=== PATIENT | female | born 1990 | race Caucasian/White ===

== ENCOUNTER 2017-03-28 16:37 | Emergency (ER) | payer MEDICAID, OTHER ==
[~2017-03-28] VITALS: Ht 177.8 cm; Wt 86.0 kg
[2017-03-28 16:38] VITALS: Ht 177.8 cm; Wt 86.0 kg
[2017-03-28 18:08] LABS: BASOPHILS % 0.3 % (0.0-2.0); EOSINOPHILS # 0.4 10^3/ul (0.0-0.5); EOSINOPHILS % 3.6 % (0.0-7.0); HEMATOCRIT 42.9 % (37.0-47.0); HEMOGLOBIN 14.1 g/dl (12.0-16.0); LYMPHOCYTES # 2.6 10^3/ul (0.8-2.9); LYMPHOCYTES % 26.3 % (15.0-51.0); MEAN CORPUSCULAR HEMOGLOBIN 29.6 pg (29.0-33.0); MEAN CORPUSCULAR HGB CONC 32.9 g/dl (32.0-37.0); MEAN CORPUSCULAR VOLUME 90.1 fl (82.0-101.0); MEAN PLATELET VOLUME 9.6 fl (7.4-10.4); MONOCYTE # 0.8 10^3/ul (0.3-0.9); MONOCYTES % 7.7 % (0.0-11.0); NEUTROPHIL # 6.2 10^3/ul (1.6-7.5); NEUTROPHILS % 61.8 % (39.0-77.0); PLATELET COUNT 358 10^3/UL (140-415); RED BLOOD COUNT 4.76 10^6/ul (4.20-5.40); RED CELL DISTRIBUTION WIDTH 14.6 % (11.5-14.5)
[2017-03-28 18:23] LABS: ADD UMIC YES; UR ASCORBIC ACID 40 mg/dL (NEGATIVE); UR BACTERIA FEW /HPF (NONE SEEN); UR BILIRUBIN (Dip) NEGATIVE (NEGATIVE); UR BLOOD (Dip) 3+ mg/dL (NEGATIVE); UR CLARITY SLIGHTLY CLOUDY (CLEAR); UR COLOR AMBER (YELLOW); UR GLUCOSE (Dip) NEGATIVE (NEGATIVE); UR KETONES (Dip) NEGATIVE (NEGATIVE); UR LEUKOCYTE ESTERASE (Dip) NEGATIVE Leu/ul (NEGATIVE); UR MUCUS MODERATE /HPF (NONE SEEN); UR NITRITE (Dip) NEGATIVE (NEGATIVE); UR RBC 50 /HPF (0-5); UR SPECIFIC GRAVITY (Dip) 1.028 (1.003-1.030); UR SQUAMOUS EPITHELIAL CELL FEW /HPF (FEW); UR TOTAL PROTEIN (Dip) 1+ mg/dl (NEGATIVE); UR UROBILINOGEN (Dip) NEGATIVE (NEGATIVE)
--- NOTE | 2017-03-28 18:44 | RADRPT ---
PROCEDURE: US Pelvis. CLINICAL INDICATION: Pelvic pain TECHNIQUE: Multiple sonographic images of the pelvis were obtained utilizing a transabdominal and endovaginal technique. The images were reviewed on a PACS workstation. COMPARISON: None. FINDINGS: The uterus is visualized and measures 8.4 x 6.4 x 6.9 cm in size. A sonolucent structure in the endo metrium is seen with a mean gestational sac diameter of 10.3 mm which gives an estimated gestational age of 5 weeks and 4 days. No pole or yolk sac is identified. There is a trace amount of rosaline e fluid. The right ovary has a normal echotexture and measures 3.1 x 2.1 x 2.3 cm. The left ovary h as a normal echotexture and measures 2.9 x 1.7 x 2.3 cm. No adnexal masses are noted. IMPRESSION: 1. Sonolucent structure in the endometrium without evidence of a pole or yolk sac and may rep resent an early . Correlation with serial beta HCG levels is suggested as well as a short interval follow-up. 2. Trace amount of free fluid. RPTAT: HPNM Physician Alireza Date Time Electronically viewed and signed by Physician Alireza on 03/28/2017 18:43 /
--- NOTE | 2017-03-28 19:43 | ERD ---
ER Documentation Chief Complaint Date/Time DATE: 03/28/17 TIME: 19:41 Chief Complaint vaginal bleeding and pelvic pain x 1 day 7 weeks HPI 26-year-old female patient with no significant past medical history is a presents to the ED complaining of vaginal bleeding that started earlier today. Reports that she has change 1 pad per day. States that his last menses was January 16, 2017. Reports that her SKIDDER is Dr. Arias. Denies any vaginal discharge , dysuria, urgency, frequency, hematuria, nausea, vomiting, diarrhea. ROS All systems reviewed and are negative except as per history of present illness. Medications Home Meds Reported Medications [None] No Conflict Check 02/01/10 Allergies Allergies: Coded Allergies: No Known Allergy (Verified , 03/28/17) Uncoded Allergies: NONE (Allergy, Mild, 02/01/10) PMhx/Soc History of Surgery: No Anesthesia Reaction: No Hx Neurological Disorder: No Hx Respiratory Disorders: No Hx Psychiatric Problems: No Hx Miscellaneous Medical Probl: No Hx Alcohol Use: No Hx Substance Use: No Hx Tobacco Use: No Physical Exam Vitals Vital Signs Date Time Temp Pulse Resp B/P Pulse Ox O2 Delivery O2 Flow Rate FiO2 03/28/17 16:38 98.2 78 16 108/60 100 Physical Exam Const: [id number], well-nourished. In no acute distress. Head: Atraumatic, normocephalic Eyes: Normal Conjunctiva without injection. No purulent discharge. ENT: Normal external ear, nose. Moist oropharynx without tonsillar exudates. Non -erythematous pharynx. Uvula midline. No drooling. No trismus. Neck: No cervical midline tenderness. Full range of motion. No meningismus. No cervical lymphadenopathy. No JVD. Resp: Clear to auscultation bilaterally. No wheezing, rhonchi, rales, or crackles. No accessory muscle use. No retractions. Cardio: Regular rate and rhythm. No murmurs, rubs or gallops. Abd: Soft, nontender, non distended. Normal bowel sounds. No palpable masses. No rebound tenderness. No guarding. Negative McBurney's point. Negative psoas sign. Negative obturator sign. Skin: No petechiae or rashes Back: No midline tenderness. No CVA tenderness. Ext: No cyanosis, or edema. Neur: Awake and alert. Normal gait. Normal coordination. Psych: Normal Mood and Affect Result Diagram: 03/28/17 1751 Results 24 hrs Laboratory Tests Test 03/28/17 17:51 White Blood Count 10.010^3/ul Red Blood Count 4.7610^6/ul Hemoglobin 14.1g/dl Hematocrit 42.9% Mean Corpuscular Volume 90.1fl Mean Corpuscular Hemoglobin 29.6pg Mean Corpuscular Hemoglobin Concent 32.9g/dl Red Cell Distribution Width 14.6% Platelet Count 21842^3/UL Mean Platelet Volume 9.6fl Neutrophils % 61.8% Lymphocytes % 26.3% Monocytes % 7.7% Eosinophils % 3.6% Basophils % 0.3% Nucleated Red Blood Cells % 0.0/100WBC Neutrophils # 6.210^3/ul Lymphocytes # 2.610^3/ul Monocytes # 0.810^3/ul Eosinophils # 0.410^3/ul Basophils # 0.010^3/ul Nucleated Red Blood Cells # 0.010^3/ul Urine Color RHIANNON Urine Clarity SLIGHTLY CLOUDY Urine pH 5.0 Urine Specific [place] 1.028 Urine Ketones NEGATIVEmg/dL Urine Nitrite NEGATIVEmg/dL Urine Bilirubin NEGATIVEmg/dL Urine Urobilinogen NEGATIVEmg/dL Urine Leukocyte Esterase NEGATIVELeu/ul Urine Microscopic RBC 50/HPF Urine Microscopic WBC 2/HPF Urine Squamous Epithelial Cells FEW/HPF Urine Bacteria FEW/HPF Urine Mucus MODERATE/HPF Urine Hemoglobin 3+mg/dL Urine Glucose NEGATIVEmg/dL Urine Total Protein 1+mg/dl Beta HCG, Quantitative 89133.0mIU/ml Procedures/MDM 26-year-old female patient with no significant past medical history presents the ED complaining of vaginal bleeding and is currently . Patient is a . Patient is afebrile and nontoxic-appearing. Patient has normal vital signs. An ultrasound, beta-hCG, CBC, type and RH, UA was ordered to evaluate patient. CBC: No evidence of severe infection or anemia Urine: No elevation in nitrites, leukocyte esterase, hematuria. No evidence of UTI Rh: O positive No indication for Rhogam at this time. beta Hc,117 PROCEDURE: US Pelvis. CLINICAL INDICATION: Pelvic pain TECHNIQUE: Multiple sonographic images of the pelvis were obtained utilizing a transabdominal and endovaginal technique. The images were reviewed on a PACS workstation. COMPARISON: None. FINDINGS: The uterus is visualized and measures 8.4 x 6.4 x 6.9 cm in size. A sonolucent structure in the endometrium is seen with a mean gestational sac diameter of 10.3 mm which gives an estimated gestational age of 5 weeks and 4 days. No pole or yolk sac is identified. There is a trace amount of free fluid. The right ovary has a normal echotexture and measures 3.1 x 2.1 x 2.3 cm. The left ovary has a normal echotexture and measures 2.9 x 1.7 x 2.3 cm. No adnexal masses are noted. IMPRESSION: 1. Sonolucent structure in the endometrium without evidence of a pole or yolk sac and may represent an early . Correlation with serial beta HCG levels is suggested as well as a short interval follow-up. 2. Trace amount of free fluid. Patient has a sonolucent structure - gestational sac of 10 mm which gives an estimated gestational age of 5 weeks and 4 day. Patient's bleeding symptoms have stabilized while in the department. Low suspicion for symptomatic anemia, ectopic , sepsis, PID, appendicitis, ovarian torsion, tubo-ovarian abscess, surgical abdomen, or other emergent conditions. Patient was educated that there is a risk for threatened . Patient to follow up with SKIDDER in 2 days for further evaluation and treatment for further evaluation and treatment for further evaluation and treatment. Patient is to return sooner to the ED for any worsening symptoms. Patient's questions were answered. Patient understood and agreed with discharge plan. Departure Diagnosis: Primary Impression: Vaginal bleeding in patient at less than 20 weeks ges... Condition: Stable Patient Instructions: Bleeding During Early Referrals: GIGI QUEEN MD (PCP) [facility] YOU HAVE RECEIVED A MEDICAL SCREENING EXAM AND THE RESULTS INDICATE THAT YOU DO NOT HAVE A CONDITION THAT REQUIRES URGENT TREATMENT IN THE EMERGENCY DEPARTMENT. FURTHER EVALUATION AND TREATMENT OF YOUR CONDITION CAN WAIT UNTIL YOU ARE SEEN IN YOUR DOCTORS OFFICE WITHIN THE NEXT 1-2 DAYS. IT IS YOUR RESPONSIBILITY TO MAKE AN APPOINTMENT FOR FOLOW-UP CARE. IF YOU HAVE A PRIMARY DOCTOR --you should call your primary doctor and schedule an appointment IF YOU DO NOT HAVE A PRIMARY DOCTOR YOU CAN CALL OUR PHYSICIAN REFERRAL HOTLINE AT IF YOU CAN NOT AFFORD TO SEE A PHYSICIAN YOU CAN CHOSE FROM THE FOLLOWING [facility] CLINICS [facility] [address] [facility] [address] [facility]. [facility] [phone] [facility] [address] [facility] [phone] [facility] [facility] [address] [facility]. [facility] YOU HAVE RECEIVED A MEDICAL SCREENING EXAM AND THE RESULTS INDICATE THAT YOU DO NOT HAVE A CONDITION THAT REQUIRES URGENT TREATMENT IN THE EMERGENCY DEPARTMENT. FURTHER EVALUATION AND TREATMENT OF YOUR CONDITION CAN WAIT UNTIL YOU ARE SEEN IN YOUR DOCTORS OFFICE WITHIN THE NEXT 1-2 DAYS. IT IS YOUR RESPONSIBILITY TO MAKE AN APPOINTMENT FOR FOLOW-UP CARE. IF YOU HAVE A PRIMARY DOCTOR --you should call your primary doctor and schedule and appointment IF YOU DO NOT HAVE A PRIMARY DOCTOR YOU CAN CALL OUR PHYSICIAN REFERRAL HOTLINE AT . IF YOU CAN NOT AFFORD TO SEE A PHYSICIAN YOU CAN CHOSE FROM THE FOLLOWING [facility] INSTITUTIONS: [facility] [address] [place] [address] [facility] [address] [place] [address] [facility] [address] [place] [address] [facility] URGENT CARE/SPECIALTIES SK[facility] [address] [facility] [address] [place], [place] [phone] OFFICE FAX CHANO BAUTISTA [address] [place], [place] [phone] DR. ROYAL, [place] [address] [place], [place] [phone] DR SANTIAGO, [facility] [address] [id number] [address] [address] [address] [place] [phone] [facility] [address] [place] [address] [facility] [id number] - [place] [facility]JAN [address] [facility] [id number] RIVERA, MELVINA [address] [facility] [address], [facility] [address] [facility] [facility] [address] [place], [place] [phone] [facility] Hours: 8:00 am - 5:00 pm Additional Instructions: Call your SKIDDER TOMORROW for an appointment during the next 2 days for further evaluation and treatment.See the doctor sooner or return here if your condition worsens before your appointment time -worsening vaginal bleeding, nausea, vomiting, worsening abdominal pain/pelvic pain, etc. CONNIE OLIVARES PA-C Mar 28, 2017 19:43
== END 2017-03-28 19:45 | disposition home or self-care (01) ==
LOC: FTE 16:37
DX: O20.9 Hemorrhage in early pregnancy, unspecified (principal); R10.2 Pelvic and perineal pain; Z3A.01 Less than 8 weeks gestation of pregnancy
CPT/HCPCS: 36415; 76801; 76817; 81001; 84702; 85025; 86900; 86901; Z7502

== ENCOUNTER 2017-04-02 21:23 | Emergency (ER) | END 2017-04-03 02:31 | disposition home or self-care (01) | DX: O20.0 Threatened abortion (principal); Z3A.01 Less than 8 weeks gestation of pregnancy | CPT/HCPCS: 76801; 76817; 84702; 85025; J2060; Z7502 ==